=== PATIENT | female | born 1955 | race Caucasian/White ===

== ENCOUNTER → 2016-10-28 09:52 | Outpatient (CLI) | payer OTHER ==
[2014-10-01 15:26] VITALS: BMI 28.4
[~2016-10-28 09:52] MED LIST: EFFEXOR37.5 MG PO; TRAZODONE HCL50 MG PO
== END | disposition home or self-care (01) ==
LOC: D.RAD 09:52
DX: Z02.71 Encounter for disability determination (principal)

== ENCOUNTER 2017-03-06 06:48 | Emergency (ER) | payer MEDICAID ==
[2014-10-01 15:26] VITALS: BMI 28.4
[2017-03-06 07:24] LABS: APPEARANCE CLEAR (CLEAR); BILIRUBIN NEGATIVE (NEGATIVE); COLOR YELLOW (YELLOW); GLUCOSE NEGATIVE (NEGATIVE); KETONE NEGATIVE (NEGATIVE); LEUKOCYTE ESTERASE TRACE (NEGATIVE); NITRITE NEGATIVE (NEGATIVE); PROTEIN NEGATIVE (NEGATIVE); SPECIFIC GRAVITY 1.025 (1.005-1.020); UROBILINOGEN NORMAL (NORMAL)
[2017-03-06 07:25] LABS: BACTERIA MODERATE /hpf (NONE SEEN); EPITHELIAL CELLS 0-5 /hpf (0-5); RED CELLS - URINE 0-5 /hpf (0-5)
[2017-03-06 07:34] LABS: BASOPHILS 0.5 % (0-2); EOSINOPHILS 1.5 % (0-7); HEMATOCRIT 42.5 % (36.0-48.0); HEMOGLOBIN 13.4 g/dL (12-16); LYMPHOCYTES 29.9 % (15-50); MCH 27.3 pg (26.0-34.0); MCHC 31.5 g/dL (31.0-37.0); MCV 86.6 fL (80.0-100.0); MEAN PLATELET VOLUME 10.8 fL (7.4-10.4); MONOCYTES 9.1 % (2-11); PLATELET COUNT 196 10x3/uL (130-400); RBC 4.91 10x6/uL (4.00-5.40); RDW 14.5 % (11.5-14.5); WBC 3.9 10x3/uL (4.8-10.8)
== END 2017-03-06 13:07 | disposition home or self-care (01) ==
LOC: D.ER 06:48
PROVIDERS: Emergency Medicine
DX: R11.10 Vomiting, unspecified (principal); R19.7 Diarrhea, unspecified; R10.9 Unspecified abdominal pain; F14.90 Cocaine use, unspecified, uncomplicated

== ENCOUNTER 2017-09-28 08:46 | Emergency (ER) | payer MEDICAID ==
[2014-10-01 15:26] VITALS: BMI 28.4
[2017-09-28 09:36] LABS: BASOPHILS 0.2 % (0-2); EOSINOPHILS 1.9 % (0-7); HEMATOCRIT 42.6 % (36.0-48.0); HEMOGLOBIN 13.4 g/dL (12-16); IMMATURE GRANULOCYTES 0.2 % (0-5); LYMPHOCYTES 27.3 % (15-50); MCH 28.5 pg (26.0-34.0); MCHC 31.5 g/dL (31.0-37.0); MCV 90.6 fL (80.0-100.0); MEAN PLATELET VOLUME 11.3 fL (7.4-10.4); MONOCYTES 8.8 % (2-11); NEUTROPHILS 61.6 % (40-80); PLATELET COUNT 188 10x3/uL (130-400); RDW 13.3 % (11.5-14.5); WBC 4.2 10x3/uL (4.8-10.8)
[2017-09-28 09:52] LABS: ALKALINE PHOSPHATASE 74 U/L (46-116); ALT (SGPT) 16 U/L (10-68); CALC OSMOLALITY 277 mosm/kg (275-300); CALCIUM 8.8 mg/dL (8.5-10.1); CARBON DIOXIDE 25.9 mmol/L (21.0-32.0); CHLORIDE - SERUM 105 mmol/L (98-107); CREATININE - SERUM 1.2 mg/dL (0.6-1.3); GLUCOSE 97 mg/dL (74-106); POTASSIUM - SERUM 4.2 mmol/L (3.5-5.1); PROTEIN - SERUM 6.7 g/dL (6.4-8.2); SODIUM 140 mmol/L (136-145); UREA NITROGEN 9 mg/dL (7-18); eGFR NON AFRICAN AMERICAN 48 mL/min (90-120)
[2017-09-28 10:01] LABS: CHOL - HDL RATIO 3.8 ratio (2.3-4.1); CHOLESTEROL, TOTAL 221 mg/dL (0-200); CKMB 0.8 U/L (0.0-3.6); CREATINE KINASE 92 UL (21-215); HDL CHOLESTEROL 58 mg/dL (32-96); LDL CHOLESTEROL 125 mg/dL (0-100); LDL-HDL RATIO 2.2 ratio (1.5-3.5); TRIGLYCERIDE 194 mg/dL (30-200); TROPONIN-I < 0.017 ng/mL (0.000-0.060)
== END 2017-09-28 10:22 | disposition home or self-care (01) ==
LOC: D.ER 08:46
PROVIDERS: Emergency Medicine
DX: R07.9 Chest pain, unspecified (principal)

== ENCOUNTER 2019-04-17 19:26 | Observation (INO) | payer MEDICAID ==
[~2019-04-17] VITALS: Ht 160 cm; Wt 102.3 kg
--- NOTE | ~2019-04-17 | EC ---
PATIENT:MICHELINE ESCUDERO DATE OF SERVICE: 04/17/19 SEX: F MEDICAL RECORD: [id number] DATE OF : [birth year] LOCATION:D.M2 D.212 AGE OF PATIENT: 64 ADMISSION DATE: 04/17/19 REFERRING PHYSICIAN: INTERPRETING PHYSICIAN: ELBA ESCAMILLA MD ECHOCARDIOGRAM REPORT ECHO CHARGES 4 ECHO COMPLETE Date: 04/19/19 CLINICAL DIAGNOSIS: CHF ECHOCARDIOGRAPHIC MEASUREMENTS (adult normal given) AC root (d.<3.7cm) 2.8 cm LV Septum d (<1.2 cm> 0.9 cm Valve Excursion 1.4 cm LV Septum (systole) 1.7 cm Left Atria (s.<4.0cm> 3.3 cm LVPW d(<1.2cm) 1.0 cm RV (d.<2.3cm) 2.8 cm LVPW (sytole) 1.6 cm LV diastole(<5.6CM) 4.5 cm MV E-F(>70mm/sec) cm LV systole 3.1 cm LVOT Diameter 1.4 cm MV exc.(>10mm) cm Est.ejection fraction (50-75%) % DOPPLER: LVIT cm/sec A 74 cm/sec E 108 cm/sec LA cm/sec RVSP 27.8 mmHg LVOT 158 cm/sec AOP1/2T m/s Asc. Ao 198 cm/sec RVOT 68 cm/sec RA cm/sec PA 103 cm/sec AV Gradient Peak 15.7 mmHg AV Mean 8.7 mmHg AV Area 1.2 cm MV Gradient Peak 5.8 mmHg MV Mean 1.8 mmHg MV Area cm COMMENTS: Inside Sales Account Executive: Arthur JERNIGAN Investment Sales Assistant: 1 Dr. Escamilla TAPE# PACS Pericardial Effusion N DATE OF SERVICE: 04/19/2019 FINDINGS: 1. Left ventricular chamber size is within normal limits. Left ventricular systolic function is normal. Overall ejection fraction is estimated at 55%. 2. Left atrium, right atrium, and right ventricular chamber sizes are within normal limit. 3. Valvular structures have normal structure and motion. 4. Doppler interrogation reveals hrtst-bv-kymi mitral regurgitation. No other valvular insufficiency or stenosis. ECHOCARDIOGRAM REPORT [id number] MICHELINE ESCUDERO 5. No evidence of pericardial effusion or left ventricular thrombus. TRANSINT:[id number] Voice Confirmation ID: [id number] DOCUMENT ID: [id number] ELBA ESCAMILLA MD CC: [id number] DICTATION DATE: 04/19/19 174 STAFFING ACCOUNT MANAGER: 04/19/192007 ADM IN [place] [id number] [place] [id number]
--- NOTE | ~2019-04-17 | HEMODYNAMI ---
PATIENT:MICHELINE ESCUDERO MEDICAL RECORD: [id number] : 59 [id number] ADMISSION DATE: 04/17/19 Generatedon:04/19/201914:13 Patient name: MICHELINE ESCUDERO Patient #: [id number] SSN: : 1955 Date of study: 04/19/2019 Page: Of Hemodynamic Procedure Report Patient Data Patient Demographics Procedure consent was obtained First Name: MICHELINE Gender: Female Last Name: KENA : 1955 Middle Initial: A Age: 64 year(s) Patient #: [id number] Race: Unknown Additional ID: [id number] Contact details Address: [address] [place] [address] State: [place] City: [place] Zip code: [address] Past Medical History Allergies: No known allergies Admission Admission Data Admission Date: 04/17/2019 Admission Time: 22:51 Room #: D2126 Weight (lbs.): 224.87 Weight (kg.): 102 Lab Results Lab Result Date: 04/19/2019 Lab Result Time: 0:00 Biochemistry Name Units Result Min Max BUN mg/dl 10 --(-*--)-- 7 18 Creatinine mg/dl 1.1 --(--*-)-- 0.6 1.3 CBC Name Units Result Min Max Hematocrit % 40.5 -*(----)-- 42 54 Hemoglobin g/dl 12.9 -*(----)-- 13.5 17.5 Procedure Procedure Types Cath Procedure Diagnostic Procedure LHC LHC w/Coronaries Procedure Description Procedure Date Procedure Date: 04/19/2019 Procedure Start Time: 13:58 Procedure End Time: 14:12 Procedure Staff Name Function Atilio Ghosh MD Performing Physician Dior Gibson RT Monitor Steven Jones RT Scrub Ashleigh Morin RN Nurse Procedure Data Cath Procedure Fluoroscopy Diagnostic fluoroscopy Total fluoroscopy Time: 0.7 time: 0.7 min min Diagnostic fluoroscopy Total fluoroscopy dose: 372 dose: 372 mGy mGy Contrast Material Contrast Material Type Amount (ml) Isovue 300 51 Entry Location Entry Primary Successful Side Size Upsize Upsize Entry Closure Succes sful Closure Location (Fr) 1 (Fr) 2 (Fr) Remarks Device Remarks Femoral Right 5 Fr Exoseal artery Estimated blood loss: 10 ml Diagnostic catheters Device Type Used For End Catheter Placement MULTIPACK JL 4.0 5Fr Procedure catheter MULTIPACK 3DRC 5Fr Procedure catheter MULTIPACK Pigtail 5 Fr Procedure catheter Procedure Complications No complications Procedure Medications Medication Administration Route Dosage Oxygen etCO2 Nasal cannula 2 l/min Lidocaine 2% added to field 20 Heparin Flush Bag added to field 2 bags (1000units/500ml NS) 0.9% NaCl I.V. 100 ml/hr Versed I.V. 2 mg Fentanyl I.V. 100 mcg Versed I.V. 2 mg Fentanyl I.V. 100 mcg Hemodynamics Rest HGB: 12.9 (g/dl) Heart Rate: 67 (bpm) Pressure Samples Time Site Value (mmHg) Purpose Heart Use Rate(bpm) 14:05 LV 117/18,21 Snapshot 69 14:05 AO 139/46(84) Pullback 57 14:05 LV 108/18,20 Pullback 57 Gradients Valve Time Site 1 Site 2 Mean SEP/DFP Peak To Heart Use (mmHg) (sec/min) Peak Rate (mmHg) (bpm) Aortic 14:05 LV AO 0 11 0 57 108/18,20 139/46(84) Calculations Valve P-P Mean Valve Index Valve Source Name Gradient Area Flow (cm2) Aortic 0 0 0 0 Snapshots Pre Cath Intra NCS Post Cath Vital Signs Time Heart Resp SPO2 etCO2 NIBP (mmHg) Rhythm Pain Sedation Rate (ipm) (%) (mmHg) Status Level (bpm) 13:52:07 66 17 99 29.9 150/91(111) NSR 0 (11) 10(A) , No pain 13:56:21 69 16 96 30.7 128/80(93) NSR 0 (11) 10(A) , No pain 14:00:27 64 18 93 31.4 126/76(95) NSR 0 (11) 9(A) , No pain 14:04:31 68 15 95 38.9 115/74(99) NSR 0 (11) 9(A) , No pain 14:08:28 67 14 94 41.1 110/84(94) NSR 0 (11) 10(A) , No pain 14:12:30 66 5 94 24.7 107/66(81) NSR 0 (11) 10(A) , No pain Medications Time Medication Route Dose Verified Delivered Reason Notes Eff ectiveness by by 13:52:51 Oxygen etCO2 2 Atilio Buffie used for Nasal l/min Davina Patience pickle maker cannula 13:52:57 Lidocaine 2% added 20ml Atilio Atilio for local to vial [facility] anesthetic field MD DAVIS 13:53:03 Heparin Flush added 2 Atilio Atilio used for Bag to bags [facility] procedure (1000units/500ml field MD DAVIS NS) 13:53:12 0.9% NaCl I.V. 100 Atilio Buffie Per ml/hr Davina Morin RN physician 13:56:14 Versed I.V. 2 mg Atilio Buffie for DavinaBaldemar Morin RN sedation 13:56:21 Fentanyl I.V. 100 Atilio Buffie for mcg [place] Morin RN sedation 14:00:42 Versed I.V. 2 mg Atilio Buffie for [facility] RN sedation 14:00:46 Fentanyl I.V. 100 Atilio Buffie for [facility] RN sedation Procedure Log Time Note 13:08:15 Signed procedure consent form obtained from patient. 13:08:17 Diagnostic Cath status Elective 13:08:17 Time tracking: Regular hours (M-F 7:00 - 5:00) 13:08:25 Plan of Care:Hemodynamics will remain stable., Cardiac rhythm will remain stable., Comfort level will be maintained., Respiratory function will remain adequate., Patient/ family verbilizes understanding of procedure., Procedure tolerated without complication., Recovers from procedure without complications.. 13:10:27 Patient Weight : 224.87 lbs 13:13:17 Lab Result : BUN 10 mg/dl 13:13:17 Lab Result : Creatinine 1.1 mg/dl 13:13:17 Lab Result : Hemoglobin 12.9 g/dl 13:13:18 Lab Result : Hematocrit 40.5 % 13:25:52 Dior Gibson RT(R) sent for patient. Start room use. 13:39:32 Patient received from Med II to [facility] 2 Alert and oriented. Tansferred to table in Supine position. 13:39:33 Warm blankets applied, and joe hugger turned on for patient comfort. 13:39:35 Correct patient and procedure confirmed by team. 13:39:38 ECG and BP/O2 sat monitors applied to patient. 13:39:40 Pre-procedure instructions explained to patient. 13:39:41 Pre-op teaching completed and patient verbalized understanding. 13:50:58 Vital chart was started 13:50:59 Baseline sample Acquired. 13:51:02 Rhythm: sinus rhythm 13:51:03 Full Disclosure recording started 13:51:07 Family unavailable. 13:51:09 Patient NPO since Midnight. 13:51:38 Patient allergic to No known allergies 13:51:41 Is patient on blood thinner?No 13:51:42 Patient diabetic? No. 13:51:44 Patient not . Patient is over age 55. 13:51:47 Previous problem with sedation/anesthesia? No ? 13:51:48 Snore? Yes 13:51:50 Sleep apnea? No 13:51:50 Deviated septum? No 13:51:51 Opens mouth fully? Yes 13:51:52 Sticks out tongue? Yes 13:51:53 Airway obstruction? No ? 13:51:57 Dentures? Yes OUT 13:52:10 Pre procedure: right dorsailis pedis pulse 3+ Increased pulse; moderate pressure to obliterate 13:52:12 Patient pain scale 0/10 ?. 13:52:23 IV patent on arrival in left antecubital with 0.9% NaCl at [facility]. 13:52:26 Lab results completed and on chart. 13:52:29 Right groin area was prepped with chlora-prep and draped in sterile fashion 13:52:30 Alarms reviewed by R. N. 13:52:30 Sharps counted by scrub and verified by R.N. 13:52:33 Use device set Femoral Dx 13:52:34 ACIST Syringe (64991) opened to sterile field. 13:52:34 Bag Decanter (2002S) opened to sterile field. 13:52:35 ACIST Hand Control (11022) opened to sterile field. 13:52:36 ACIST Manifold (89341) opened to sterile field. 13:52:37 Tegaderm 4 x 4 (1626W) opened to sterile field. 13:52:39 Medline Cath Pack ([id number]) opened to sterile field. 13:52:40 DIAGNOSTIC Multipack 5Fr catheter set (ET9428) opened to sterile field. 13:52:41 EMERALD Guide Wire (092-537) opened to sterile field. 13:52:42 SHEATH 5FR [place] (UGE832) opened to sterile field. 13:52:51 Oxygen 2 l/min etCO2 Nasal cannula was administered by Ashleigh Morin RN; used for procedure; 13:52:57 Lidocaine 2% 20ml vial added to field was administered by Atilio Ghosh MD; for local anesthetic; 13:53:03 Heparin Flush Bag (1000units/500ml NS) 2 bags added to field was administered by Atilio Ghosh MD; used for procedure; 13:53:12 0.9% NaCl 100 ml/hr I.V. was administered by Ashleigh Morin RN; Per physician; 13:55:00 Zero performed for pressure channel P1 13:55:52 --------ALL STOP TIME OUT------ 13:55:52 Final Timeout: patient, procedure, and site verified with staff and physician. All members of the team are in agreement. 13:55:54 Right groin site verified by team. 13:55:57 Fire Safety Assessment: A--An alcohol-based skin anteseptic being used preoperatively., C--Open oxygen or nitrous oxide is being used., D--An ESU, laser, or fiber-optic light is being used. 13:56:00 Physical assessment completed. ASA score P 2 - A patient with mild systemic disease as per Atilio Ghosh MD. 13:56:14 Versed 2 mg I.V. was administered by Ashleigh Morin RN; for sedation; 13:56:21 Fentanyl 100 mcg I.V. was administered by Ashleigh Morin RN; for sedation; 13:56:28 Maximum allowable contrast does (3.7 X eGFR X 0.75)147 ml. 13:57:06 3a) 45-59 Moderately reduced kidney function. 13:57:09 Sedation plan: IV Moderate Sedation Medication:Versed, Fentanyl 13:58:04 Zero performed for pressure channel P1 13:58:14 Procedure started. 13:58:20 Local anesthetic to right femoral artery with Lidocaine 2% by Atilio Ghosh MD.INITIAL ACCESS ONLY 14:00:42 Versed 2 mg I.V. was administered by Ashleigh Morin RN; for sedation; 14:00:46 Fentanyl 100 mcg I.V. was administered by Ashleigh Morin RN; for sedation; 14:00:51 A 5 Fr sheath was inserted into the Right Femoral artery 14:01:25 A MULTIPACK JL 4.0 5Fr catheter was advanced over the wire and used for Procedure. 14:03:14 LCA angiography performed. 14:03:38 Catheter removed. 14:03:45 A MULTIPACK 3DRC 5Fr catheter was advanced over the wire and used for Procedure. 14:04:28 RCA angiography performed. 14:04:30 Catheter removed. 14:05:12 A MULTIPACK Pigtail 5 Fr catheter was advanced over the wire and used for Procedure. 14:05:17 LV gram done using HERBERT 14:05:20 Injector settings: Ml/sec: 10, Volume: 20, 14:05:30 EF : 55 % 14:05:31 LV hemodynamics recorded. 14:05:40 Catheter removed. 14:05:42 EXOSEAL 5Fr (EX500) opened to sterile field. 14:06:33 Sheath removed intact; hemostasis achieved with Exoseal to the Right Femoral artery. 14:06:35 Procedure ended.(Physican Out) 14:07:25 Fluoroscopy time 00.70 minutes. 14:07:30 Fluoroscopy dose: 372 mGy 14:07:30 Flurop Dose total: 372 14:07:34 Contrast amount:Isovue 300 51ml. 14:07:36 Sharps counted by scrub and verified by R.N. 14:07:39 Post-op/insertion site Right Femoral artery dressed using a 4 x 4 and Tegaderm. 14:07:43 Post-procedure physical assessment completed. ASA score P 2 - A patient with mild systemic disease as per Atilio Ghosh MD. 14:08:25 Post procedure rhythm: sinus rhythm 14:08:29 Estimated blood loss: 10 ml 14:08:30 Post procedure instruction explained to patient.Patient verbalizes understanding. 14:08:31 Patient needs reinforcement of post procedure teaching. 14:09:08 Procedure and supply charges have been captured, reviewed, submitted and are correct. 14:09:10 Procedure Complication : No complications 14:12:11 Vital chart was stopped 14:12:11 See physician's report for complete and final results. 14:12:14 Report given to [facility] II. 14:12:17 Patient transfered to Med II with Bed. 14:12:19 Procedure ended. 14:12:19 Full Disclosure recording stopped 14:12:22 End room use (Document Last) Device Usage Item Name Manufacture Quantity Catalog Hospital Part Current Minimal L ot# / Number Charge Number Stock Stock Serial# Code ACIST Acist 1 88826 214956 712696 542450 20 Syringe Medical (94089) Systems Inc Bag Microtek 1 2001S 086230 49695 184624 5 Decanter Medical Inc. () ACIST Hand Acist 1 40833 802901 961378 701132 5 Control Medical (31431) Systems Inc ACIST Acist 1 81639 182263 404351 123573 5 Manifold Medical (22655) Systems Inc Tegaderm 4 3M 1 1626W 988390 746381 683046 5 x 4 (1626W) Medline Medline 1 [id number] 005798 43378 066324 5 Cath Pack ([id number]) DIAGNOSTIC Cardinal 1 OT0536 904577 21986 529856 30 Multipack Health 5Fr catheter set (RF8970) EMERALD Cardinal 1 502-455 992758 467572 627923 5 Guide Wire Health (502-455) SHEATH 5FR Terumo 1 YHZ661 379800 802035 083551 5 [place] (JUL056) MULTIPACK Cardinal 1 573043 5 JL 4.0 5Fr Health catheter MULTIPACK Cardinal 1 465276 5 3DRC 5Fr Health catheter MULTIPACK Cardinal 1 008091 5 Pigtail 5 Health Fr catheter EXOSEAL 5Fr Cardinal 1 EX500 495389 043976 809276 10 (EX500) Health Signature Audit [place] Stage Time Signature Unsigned Intra-Procedure 04/19/2019 Dior Gibson 2:12:58 PM RT(R) Signatures Monitor : Dior Gibson Signature : RT Date : Time : [place] [id number] [place] [address]
[2019-04-17 20:03] LABS: BASOPHILS 0.3 % (0-2); EOSINOPHILS 1.7 % (0-7); HEMOGLOBIN 13.5 g/dL (12-16); IMMATURE GRANULOCYTES 0.2 % (0-5); MCH 28.8 pg (26.0-34.0); MCHC 32.1 g/dL (31.0-37.0); MCV 89.6 fL (80.0-100.0); MONOCYTES 5.4 % (2-11); NEUTROPHILS 68.4 % (40-80); PLATELET COUNT 203 10x3/uL (130-400); RBC 4.69 10x6/uL (4.00-5.40); RDW 13.5 % (11.5-14.5); WBC 5.9 10x3/uL (4.8-10.8)
[2019-04-17 20:18] LABS: ALBUMIN 2.9 g/dL (3.4-5.0); ALKALINE PHOSPHATASE 74 U/L (46-116); ALT (SGPT) 20 U/L (10-68); BILIRUBIN - TOTAL 0.46 mg/dL (0.2-1.3); CALC OSMOLALITY 279 mosm/kg (275-300); CALCIUM 8.5 mg/dL (8.5-10.1); CARBON DIOXIDE 27.4 mmol/L (21.0-32.0); CHLORIDE - SERUM 107 mmol/L (98-107); CREATININE - SERUM 1.2 mg/dL (0.6-1.3); GLUCOSE 100 mg/dL (74-106); POTASSIUM - SERUM 4.5 mmol/L (3.5-5.1); PROTEIN - SERUM 6.5 g/dL (6.4-8.2); SODIUM 141 mmol/L (136-145); UREA NITROGEN 11 mg/dL (7-18); eGFR NON AFRICAN AMERICAN 48 mL/min (90-120)
[2019-04-17 20:31] LABS: CKMB 0.5 U/L (0.0-3.6); CREATINE KINASE 88 UL (21-215); MAGNESIUM - SERUM 2.1 mg/dL (1.8-2.4); PRO BNP 256 pg/mL (0-125)
--- NOTE | 2019-04-17 20:32 | NUR ---
MENTAL HEALTH NURSE HERE TO DO ASSESSMENT.
[2019-04-17 20:34] LABS: TROPONIN-I < 0.017 ng/mL (0.000-0.060)
--- NOTE | 2019-04-17 20:37 | NUR ---
DR GUIDRY NOTIFIED AND REVIEWED PT's BEHAVIOR AND ASSESSMENT RESULTS. PT IS A LOW RISK PER DR GUIDRY. DR GUIDRY STATED TO GIVE RESOURCES TO PT AT TIME OF DISCHARGE, NO FURTHER ORDERS AT THIS TIME. RESOURCES REVIEWED WITH PT AND SHE VERBALIZED UNDERSTANDING.
[2019-04-17 21:17] LABS: APPEARANCE CLEAR (CLEAR); BILIRUBIN NEGATIVE (NEGATIVE); COLOR YELLOW (YELLOW); GLUCOSE NEGATIVE (NEGATIVE); KETONE NEGATIVE (NEGATIVE); NITRITE NEGATIVE (NEGATIVE); PROTEIN NEGATIVE (NEGATIVE); UROBILINOGEN NORMAL (NORMAL)
[2019-04-17 21:21] LABS: UDS - AMPHET NEGATIVE QUAL (NEGATIVE); UDS - BARB NEGATIVE QUAL (NEGATIVE); UDS - BENZO NEGATIVE QUAL (NEGATIVE); UDS - COCAINE POSITIVE QUAL (NEGATIVE); UDS - OPIATE NEGATIVE QUAL (NEGATIVE); UDS - PCP NEGATIVE QUAL (NEGATIVE); UDS - THC NEGATIVE QUAL (NEGATIVE)
[2019-04-18] VITALS (7 sets, daily range): BP systolic 133–149; BP diastolic 60–80; Ht 160 cm; Wt 102.3 kg
[2019-04-18 06:03] LABS: BASOPHILS 0.2 % (0-2); EOSINOPHILS 2.5 % (0-7); HEMATOCRIT 40.5 % (36.0-48.0); HEMOGLOBIN 12.9 g/dL (12-16); IMMATURE GRANULOCYTES 0.2 % (0-5); LYMPHOCYTES 32.5 % (15-50); MCH 28.4 pg (26.0-34.0); MCHC 31.9 g/dL (31.0-37.0); MCV 89.2 fL (80.0-100.0); MEAN PLATELET VOLUME 11.1 fL (7.4-10.4); MONOCYTES 6.1 % (2-11); NEUTROPHILS 58.5 % (40-80); PLATELET COUNT 194 10x3/uL (130-400); RBC 4.54 10x6/uL (4.00-5.40); RDW 13.8 % (11.5-14.5); WBC 5.3 10x3/uL (4.8-10.8)
[2019-04-18 06:40] LABS: ALBUMIN 2.6 g/dL (3.4-5.0); ALKALINE PHOSPHATASE 69 U/L (46-116); ALT (SGPT) 18 U/L (10-68); BILIRUBIN - TOTAL 0.46 mg/dL (0.2-1.3); CALC OSMOLALITY 278 mosm/kg (275-300); CALCIUM 8.5 mg/dL (8.5-10.1); CARBON DIOXIDE 27.3 mmol/L (21.0-32.0); CHLORIDE - SERUM 108 mmol/L (98-107); CKMB 0.7 U/L (0.0-3.6); CREATINE KINASE 66 UL (21-215); CREATININE - SERUM 1.1 mg/dL (0.6-1.3); GLUCOSE 85 mg/dL (74-106); MAGNESIUM - SERUM 2.3 mg/dL (1.8-2.4); POTASSIUM - SERUM 4.4 mmol/L (3.5-5.1); PROTEIN - SERUM 6.1 g/dL (6.4-8.2); SODIUM 141 mmol/L (136-145); TROPONIN-I < 0.017 ng/mL (0.000-0.060); UREA NITROGEN 10 mg/dL (7-18); eGFR NON AFRICAN AMERICAN 53 mL/min (90-120)
--- NOTE | 2019-04-18 14:28 | NUR ---
I have reviewed this patient and I concur with the Shift Assessment completed by the Licensed Practical Nurse today this shift.
[2019-04-18 14:56] LABS: CKMB 0.3 U/L (0.0-3.6); CREATINE KINASE 65 UL (21-215); TROPONIN-I < 0.017 ng/mL (0.000-0.060)
--- NOTE | 2019-04-18 16:47 | NUR ---
DC HOME PER PERSONAL CAR
--- NOTE | 2019-04-18 17:43 | NUR ---
WITHOUT CHANGES OR DISTRESS NOTED AT THIS TIME.
[2019-04-19] VITALS: BP 130/63
--- NOTE | 2019-04-19 01:52 | NUR ---
I have reviewed this patient and I concur with the Shift Assessment completed by the Licensed Practical Nurse today this shift.
[2019-04-19 04:30] VITALS: BP 111/63
[2019-04-19 06:24] LABS: CHOL - HDL RATIO 3.7 ratio (2.3-4.1); LDL-HDL RATIO 2.2 ratio (1.5-3.5)
[2019-04-19 09:17] VITALS: BP 144/70
--- NOTE | 2019-04-19 10:03 | NUR ---
I have reviewed this patient and I concur with the Shift Assessment completed by the Licensed Practical Nurse today this shift.
[2019-04-19 13:34] VITALS: BP 117/61
[2019-04-19 13:54] LABS: BASOPHILS 0.2 % (0-2); EOSINOPHILS 1.2 % (0-7); HEMATOCRIT 42.3 % (36.0-48.0); HEMOGLOBIN 13.7 g/dL (12-16); IMMATURE GRANULOCYTES 0.3 % (0-5); LYMPHOCYTES 19.2 % (15-50); MCH 28.9 pg (26.0-34.0); MCHC 32.4 g/dL (31.0-37.0); MCV 89.2 fL (80.0-100.0); MEAN PLATELET VOLUME 10.9 fL (7.4-10.4); MONOCYTES 6.5 % (2-11); NEUTROPHILS 72.6 % (40-80); PLATELET COUNT 170 10x3/uL (130-400); RBC 4.74 10x6/uL (4.00-5.40); RDW 13.8 % (11.5-14.5)
[2019-04-19 14:01] LABS: CALCIUM 8.5 mg/dL (8.5-10.1); CARBON DIOXIDE 26.1 mmol/L (21.0-32.0); CREATININE - SERUM 1.2 mg/dL (0.6-1.3)
[2019-04-19 14:02] LABS: POTASSIUM - SERUM 5.1 mmol/L (3.5-5.1)
[2019-04-19 17:36] VITALS: BP 97/58
--- NOTE | 2019-04-19 19:22 | NUR ---
PT AAO, RESTING IN BED. PT HAS NO S/S OF DISTRESS. NAME AND DATE PLACED ON BOARD. RIGHT GROIN SOFT, CDI. PT WILL CALL FOR ASSIST WHEN NEEDED. WILL CPOC
[2019-04-19 20:00] VITALS: BP 118/68
--- NOTE | 2019-04-19 20:18 | NUR ---
NIGHT MEDICATIONS GIVEN. PT VERBALIZED UNDERSTANDING IN MEDICATION. ASKING FOR SOMETHING TO GET BACK PAIN RELEIF. ASKING FOR TYLENOL AND ULTRAM. PT RECEIVED. PT HAS NO S/S OF DISTRESS. BED LOW AND CALL LIGHT IN REACH. PT AAO. UP AD THELMA. WILL CALL FOR ASSIST WHEN NEEDED. WILL CPOC
[2019-04-20] VITALS: BP 114/63
[2019-04-20 04:00] VITALS: BP 107/59
--- NOTE | 2019-04-20 07:05 | NUR ---
PT VERBALIZED UNDERSTANDING OF MORNING MEDICATIONS. ULTRAM GIVEN FOR HEADACHE/BACK PAIN. PT HAS NO S/S OF DISTRESS. DENIES ANY NEEDS. WILL CALL FOR ASSIST WHEN NEEDED. WILL CPOC
--- NOTE | 2019-04-20 07:10 | NUR ---
REPORT RECEIVED FROM TUBING ASSEMBLER AND PATIENT CARE ASSUMED. PATIENT LAYING IN BED ON LT SIDE WITH EYES CLOSED AND BREATHING EVENLY. WILL CONTINUE WITH PLAN OF CARE. SR UP X 2 BED IN LOW POSITION AND CALL LIGHT IN REACH.
[2019-04-20 07:25] LABS: BASOPHILS 0.2 % (0-2); EOSINOPHILS 1.7 % (0-7); HEMATOCRIT 40.9 % (36.0-48.0); HEMOGLOBIN 13.2 g/dL (12-16); IMMATURE GRANULOCYTES 0.4 % (0-5); LYMPHOCYTES 25.8 % (15-50); MCH 29.1 pg (26.0-34.0); MCHC 32.3 g/dL (31.0-37.0); MCV 90.3 fL (80.0-100.0); MEAN PLATELET VOLUME 10.7 fL (7.4-10.4); MONOCYTES 6.9 % (2-11); PLATELET COUNT 172 10x3/uL (130-400); RBC 4.53 10x6/uL (4.00-5.40); RDW 13.9 % (11.5-14.5); WBC 5.2 10x3/uL (4.8-10.8)
[2019-04-20 07:36] LABS: ANION GAP 11.6 mmol/L (8-16); CALCIUM 8.7 mg/dL (8.5-10.1); CARBON DIOXIDE 27.1 mmol/L (21.0-32.0); CREATININE - SERUM 1.2 mg/dL (0.6-1.3); POTASSIUM - SERUM 4.7 mmol/L (3.5-5.1)
[2019-04-20 09:20] VITALS: BP 133/65
[2019-04-20] MEDS ORDERED: LISINOPRIL5 MG PO (09:39)
--- NOTE | 2019-04-20 12:28 | NUR ---
L AC IV SL DC'D, CATHETER TIP INTACT, SIGHT FREE OF REDNESS AND ERYTHEMA. PT TOLERATED WELL.
--- NOTE | 2019-04-20 12:47 | NUR ---
PATIENT IS STABLE AND VSS. PATIENT DENIES ANY NEEDS OR PAIN . ORDERS RECEIVED FOR DC. WRITTEN AND VERBAL INSTRUCTIONS GIVEN. PATIENT VERBALIZED UNDERSTANDING AND SIGNED WRITTEN INSTRUCTIONS. IV DC/D W/O DIFFICULTY WITH ENTIRE CATHETER INTACT. PATIENT AWAITING A RIDE HOME AND WILL LET THIS NURSE KNOW WHEN HERE.
--- NOTE | 2019-04-20 13:30 | NUR ---
PATIENT IS STABLE . PATIENT TO FRONT DOOR VIA PRIVATE VEHICLE DRIVEN BY FRIEND.
--- NOTE | 2019-04-20 15:32 | MORECARE ---
CASE MANAGEMENT DISCHARGE SUMMARY PATIENT: MICHELINE ESCUDERO UNIT: [id number] ADM DATE: 04/17/19 AGE: 64 : 59 SEX: F ROOM/BED: D.2126 AUTHOR: ADIS CARTY PHYSICIAN: REFERRING PHYSICIAN: BELIA FRANCE MD DATE OF SERVICE: 04/20/19 Discharge Plan Patient Name: MICHELINE ESCUDERO [facility] [facility] 1955 Planned Disposition: Home Anticipated Discharge Date: 04/20/19 Discharge Date: 04/20/2019 Expected LOS: 3 Initial Reviewer: [email or web address] Initial Review Date: 04/20/2019 Generated: 04/20/19 4:31 pm DCPIA - Discharge Planning Initial Assessment Updated by [email or web address]: Ankur Knight on 04/20/19 3:27 pm * Is the patient Alert and Oriented? Yes * How many steps to enter\exit or inside your home? 25 * PCP DR. SUERO * Pharmacy [facility] * Preadmission Environment Home Alone * ADLs Independent * Equipment None * Other Equipment NO MEDICAL EQUIPMENT PROVIDER PREFERENCE * List name and contact numbers for known caregivers / representatives who currently or will assist patient after discharge: FABIO ESCUDERO, DTR, * Verbal permission to speak to the caregivers and representatives has been obtained from the patient. N/A * Community resources currently utilized None * Please name any agencies selected above. NONE * Additional services required to return to the preadmission environment? No * Can the patient safely return to the preadmission environment? Yes * Has this patient been hospitalized within the prior 30 days at any hospital? No Patient Name: MICHELINE ESCUDERO Page 74467 at 1532 All edits/amendments must be made on the electronic document DICTATION DATE: 04/20/19 1531 GREENSKEEPER SUPERVISOR: [place] 04/20/19 153 RPT#: [id number] DC DATE:04/20/19 STATUS: DIS IN [place] [id number] [place] [address] END OF REPORT
--- NOTE | 2019-04-20 15:38 | MORECARE ---
CASE MANAGEMENT DISCHARGE SUMMARY PATIENT: MICHELINE ESCUDERO UNIT: [id number] ADM DATE: 04/17/19 AGE: 64 : 59 SEX: F ROOM/BED: D.5050 AUTHOR: MACHELLE,DOC PHYSICIAN: REFERRING PHYSICIAN: BELIA FRANCE MD DATE OF SERVICE: 04/20/19 Discharge Plan Patient Name: MICHELINE ESCUDERO Facility[facility]:[place] : 1955 Planned Disposition: Home Anticipated Discharge Date: 04/20/19 Discharge Date: 04/20/2019 Expected LOS: 3 Initial Reviewer: [email or web address] Initial Review Date: 04/20/2019 Generated: 04/20/19 4:38 pm Comments DCP- Discharge Planning Updated by [email or web address]: Ankur Knight on 04/20/19 2:[address] Patient Name: MICHELINE ESCUDERO Admission Status: ER Accout number: [id number] Admission Date: 04-17-2019 : 1955 Admission Diagnosis: Attending: BELIA FRANCE Current LOS: 3 Anticipated DC Date: 04-20-2019 Planned Disposition: Home Primary [facility] [employer] [facility] Discharge Planning Comments: DRY CURER ADVISED CM THAT DISCHARGED PT REPORTS NOT HAVING RIDE HOME TODAY. CM MET WITH PT IN ROOM. PT REPORTS LIVING ATHOME ALONE, HAS NO MEDICAL EQUIPMENT AND NO OUTSIDE SERVICES ASSISTING IN HER HOME. PT REPORTS BEING INDEPENDENT IN HER CARE. PT REPORTS NOT HAVING A RIDE HOME SHE USUALLY RIDES THE BUS AND IT IS A HOLIDAY, THERE IS NO [employer] SERVICES TODAY. CM EXPLAINED TO PT SHE HAS BEEN DISCHARGED AND BEGAN TO EXPLORE PERSONAL SUPPORT SYSTEM WITH PT. PT CALLED HER FRIEND, ELMA, WHO IS NOT WORKING TODAY AND AGREED TO APPLICATION TECHNICIAN PT WITHIN THE HOUR. CM DISCUSSED COCAINE USE, PT DENIES CURRENT DRUG USE OR ADDICTION, STATES THAT SHE THOUGHT HER SUPPOSSED FRIEND WAS GIVING HER A "BC" POWDER BUT AFTER PT TOOK IT, SHE KNEW IT TASTED FUNNY AND THE OTHER GIRL THAT WAS THERE BEGAN TO LAUGH. PT STATES THE GIRL THAT GAVE HER THAT IS NO LONGER A FRIEND AND PT STATES SHE DOES NOT NEED DRUG TREATMENT OR SUPPORT GROUP INFORMATION. CM DISCUSSED AVAILABILITY OF REHAB SERVICES, HOME HEALTH AND MEDICAL EQUIPMENT, PT DENIES DISCHARGE NEEDS. BEDSIDE NURSE INFORMED PT NOW HAS A RIDE TO PICK HER UP FOR TRANSPORT HOME TODAY. Hse Advisor: Ankur Knight DCPIA - Discharge Planning Initial Assessment Updated by [id number]: Ankur Knight on 04/20/19 3:27 pm * Is the patient Alert and Oriented? Yes * How many steps to enter\\exit or inside your home? 25 * PCP DR. SUERO * Pharmacy [facility] * Preadmission Environment Home Alone * ADLs Independent * Equipment None * Other Equipment NO MEDICAL EQUIPMENT PROVIDER PREFERENCE * List name and contact numbers for known caregivers / representatives who currently or will assist patient after discharge: FABIO ESCUDERO, TRAMAINE, * Verbal permission to speak to the caregivers and representatives has been obtained from the patient. N/A * Community resources currently utilized None * Please name any agencies selected above. NONE * Additional services required to return to the preadmission environment? No * Can the patient safely return to the preadmission environment? Yes * Has this patient been hospitalized within the prior 30 days at any hospital? No Last DP export: 04/20/19 2:31 pm Patient Name: MICHELINE ESCUDERO Page 26751 at 1538 All edits/amendments must be made on the electronic document DICTATION DATE: 04/20/191536 TANK WELDER: CLINTON 04/20/191536 RPT#: [id number] DC DATE:04/20/19 STATUS: DIS IN [place] [id number] [place] [address] END OF REPORT
--- NOTE | 2019-04-21 14:33 | OP ---
PATIENT NAME: MICHELINE ESCUDERO MEDICAL RECORD: [id number] :[birth year] LOCATION:D.M2 D.2126 ADMISSION DATE:04/17/19 SURGEON: MOE WALKER MD DATE OF OPERATION: 04/19/2019 PROCEDURE: Left heart catheterization, selective coronary angiography, right femoral artery approach. CATHETERS: A 5-Mongolian sheath, 5-4 left and right Michelle, 5-4 pig. The procedure was well tolerated. The patient was returned to the jurado. Sheath was removed. ExoSeal device was placed. FINDINGS: Left ventriculography in 30-degree HERBERT view: Normal wall motion. Normal systolic function. CORONARY ANATOMY: LEFT MAIN: Left main is free of disease. LAD: Free of disease in the diagonal system. CIRCUMFLEX: Free of disease in the marginal system. RIGHT CORONARY ARTERY: Dominant artery, gives rise to PDA, free of disease. IMPRESSION: Normal LV systolic function. Normal coronary anatomy. TRANSINT:[id number] Voice Confirmation ID: [id number] DOCUMENT ID: [id number] MOE WALKER MD at 1433 CC: [id number] DICTATION DATE: 04/19/19 1425 BACK CLOSER: 04/19/19 1533 DIS IN 04/20/19 [place] [address] [place] [address]
== END 2019-04-20 13:53 | disposition home or self-care (01) ==
LOC: D.ER 19:26 → OBSVTIME 22:51 → D.M2 22:51
PROVIDERS: Family Medicine; Internal Medicine Interventional Cardiology; ADMIT Internal Medicine Nephrology; ATTEND Internal Medicine Nephrology
DX: I20.9 Angina pectoris, unspecified (principal); I10 Essential (primary) hypertension; F14.90 Cocaine use, unspecified, uncomplicated; E66.01 Morbid (severe) obesity due to excess calories